=== PATIENT | female | born 1995 | race African-American/Black ===

== ENCOUNTER 2019-09-10 06:06 | Inpatient (IN) ==
[2019-09-10] MEDS ORDERED: ACETAMINOPHEN 325 MG TABLET PO PRN ×2 (06:22→14:56)
[2019-09-10] MEDS ORDERED: MEPERIDINE 50 MG/1 ML VIAL IV PRN (06:22)
[2019-09-10] MEDS ORDERED: LACTATED RINGERS 500 ML IV PRN (06:22)
[2019-09-10] MEDS ORDERED: ONDANSETRON 4 MG/2 ML VIAL IV PRN (06:22)
[2019-09-10] MEDS ORDERED: BUTORPHANOL 2 MG/ML VIAL IV PRN (06:22)
[2019-09-10] MEDS ORDERED: LACTATED RINGERS 1,000 ML IV SCH (06:30)
[2019-09-10 06:53] LABS: Basophils % 0.2 % (0.0-0.8); Eosinophils # 0.1 10*3/uL (0.0-0.87); Eosinophils % 0.6 % (0.00-10.9); Hematocrit 39.3 VOL% (35.7-47.0); Hemoglobin 12.8 GM/DL (12.0-16.0); Immature Granulocytes % 0.8 %; Immature Granulocytes Absolute 0.07 #; Lymphocytes # 1.8 10*3/uL (1.4-4.0); Lymphocytes % 21.6 % (21.3-54.2); Mean Corpuscular HGB Conc 32.6 GM/DL (32-36); Mean Corpuscular Volume 88.7 FL (87-102); Mean Platelet Volume 10.8 FL (9.6-12.0); Monocytes % 10.5 % (1.7-12.7); Neutrophils % 66.3 % (38.7-73.9); Platelet Count 221 T/CUMM (130-400); Red Blood Count 4.43 MC/CUMM (3.8-5.5); Red Cell Distribution Width 13.9 % (9.3-17.3); White Blood Count 8.3 T/CUMM (4-12)
[2019-09-10] MEDS ORDERED: OXYTOCIN/LR 20 UNIT/1,000 ML BAG IV SCH (07:30)
[2019-09-10] MEDS ORDERED: ONDANSETRON 4 MG/2 ML VIAL IV ONE (07:35)
[2019-09-10] MEDS ORDERED: diphenhydrAMINE 50 MG/1 ML VIAL IV PRN ×2 (07:35)
[2019-09-10] MEDS ORDERED: NALOXONE 0.4 MG/ML VIAL IV PRN (07:35)
[2019-09-10] MEDS ORDERED: ePHEDrine 50 MG/ML AMP IV PRN (07:35)
[2019-09-10] MEDS ORDERED: hydrOXYzine HCL 25 MG/1 ML VIAL IM PRN (07:35)
[2019-09-10] MEDS ORDERED: CITRIC ACID/SODIUM CITRATE 30 ML UDCUP PO ONE (07:35)
[2019-09-10] MEDS ORDERED: FAMOTIDINE 20 MG/2 ML VIAL IV ONE (07:35)
[2019-09-10] MEDS ORDERED: LACTATED RINGERS 1,000 ML IV ONE (07:35)
[2019-09-10] MEDS ORDERED: PROMETHAZINE 25 MG/1 ML VIAL IM ONE (07:35)
[2019-09-10] MEDS ORDERED: fentaNYL 2 MCG/ROPIV 0.2% EPID 100 ML EPIDURAL SCH (08:00)
[2019-09-10] MEDS ORDERED: DEXTROSE 5% LACTATED RINGERS 1,000 ML IV SCH (09:00)
[2019-09-10 10:09] LABS: Apearance,Urine Clear (Clear); Bacteria,Urine Occasional /HPF (Few); Bilirubin,Urine Negative (Negative); Blood, Urine NEGATIVE (Negative); Glucose,Urine (UA) 150 mg/dL (Negative); Ketones,Urine 300 mg/dL (Negative); Mucus,Urine Occasional /LPF (Occasional); Nitrite,Urine Negative (Negative); Protein,Urine Negative; RBC,Urine 1 /HPF (0-4); Squamous Epithelial Cell,Urine Few /HPF (0-10); Urine Color Yellow (Yellow); Urine Specific Gravity 1.015 (1.001-1.035); Urine Urobilinogen 0.2 EU/DL (0.2-1.0); WBC,Urine 1 /HPF (0-6)
[2019-09-10] MEDS ORDERED: LIDOCAINE 1% 50 ML VIAL ONE (12:53)
[2019-09-10] MEDS ORDERED: miSOPROStoL 200 MCG TABLET ONE (12:53)
[2019-09-10] MEDS ORDERED: oxyCODONE/ACETAMINOPHEN 5-325 MG TABLET PO PRN (14:56)
[2019-09-10] MEDS ORDERED: HYDROCORTISONE 2.5% RECTAL CREAM 30 GM TUBE TOP PRN (14:56)
[2019-09-10] MEDS ORDERED: BENZOCAINE 20%/MENTHOL 0.5% SPRAY 56 GM CAN TOP PRN (14:56)
[2019-09-10] MEDS ORDERED: RHO(D) IMMUNE GLOBULIN 300 MCG SYRINGE IM ONE (14:56)
[2019-09-10] MEDS ORDERED: MEASLES/MUMPS/RUBELLA VACCINE 0.5 ML VIAL SUBCUT ONE (14:56)
[2019-09-10] MEDS ORDERED: BISACODYL 10 MG SUPP RECTAL PRN (14:56)
[2019-09-10] MEDS ORDERED: DIPH/TET/ACEL PERT BOOSTER VACCINE 0.5 ML VIAL IM ONE (14:56)
[2019-09-10] MEDS ORDERED: LANOLIN 50% CREAM 0.3 OZ TUBE TOP PRN (14:56)
[2019-09-10] MEDS ORDERED: WITCH HAZEL PADS 100/JAR TOP PRN (14:56)
[2019-09-10] MEDS: IBUPROFEN 800 MG TABLET PO PRN (16:11)
[2019-09-10] MEDS ORDERED: GLUCAGON 1 MG VIAL IM PRN (16:57)
[2019-09-10] MEDS ORDERED: DEXTROSE 50% 25 GM/50 ML VIAL IV PRN (16:57)
[2019-09-10] MEDS: oxyCODONE/ACETAMINOPHEN 5-325 MG TABLET PO PRN (19:45)
[2019-09-10] MEDS: INSULIN REGULAR 100 UNIT/ML SUBCUT SCH (21:23)
[2019-09-10] MEDS: DOCUSATE SODIUM 100 MG CAPSULE PO SCH (21:24)
[2019-09-11] MEDS: IBUPROFEN 800 MG TABLET PO PRN ×2 (01:00→09:26)
[2019-09-11] MEDS: oxyCODONE/ACETAMINOPHEN 5-325 MG TABLET PO PRN ×2 (02:41→20:38)
[2019-09-11 06:14] LABS: Basophils % 0.2 % (0.0-0.8); Eosinophils # 0.2 10*3/uL (0.0-0.87); Eosinophils % 1.3 % (0.00-10.9); Hematocrit 31.7 VOL% (35.7-47.0); Hemoglobin 10.4 GM/DL (12.0-16.0); Immature Granulocytes % 0.7 %; Immature Granulocytes Absolute 0.08 #; Lymphocytes # 2.8 10*3/uL (1.4-4.0); Lymphocytes % 22.9 % (21.3-54.2); Mean Corpuscular HGB Conc 32.8 GM/DL (32-36); Mean Corpuscular Volume 88.1 FL (87-102); Mean Platelet Volume 10.7 FL (9.6-12.0); Neutrophils % 64.9 % (38.7-73.9); Platelet Count 186 T/CUMM (130-400); Red Cell Distribution Width 13.8 % (9.3-17.3); White Blood Count 12.1 T/CUMM (4-12)
[2019-09-11] MEDS: DOCUSATE SODIUM 100 MG CAPSULE PO SCH ×2 (09:27→20:38)
[2019-09-11] MEDS: INSULIN REGULAR 100 UNIT/ML SUBCUT SCH ×4 (17:43→20:39)
[2019-09-12] MEDS: IBUPROFEN 800 MG TABLET PO PRN (08:32)
[2019-09-12] MEDS: DOCUSATE SODIUM 100 MG CAPSULE PO SCH (08:32)
[2019-09-12 11:30] VITALS: BP 127/71
[2019-09-12] MEDS: INSULIN REGULAR 100 UNIT/ML SUBCUT SCH (15:14)
== END 2019-09-12 13:55 | disposition home or self-care (01) | DRG 807 ==
LOC: N.LDOUT 06:06 → N.LD 06:09 → N.OB 17:11
PROVIDERS: ADMIT Obstetrics & Gynecology; ATTEND Obstetrics & Gynecology